=== PATIENT | female | born 1985 | race Caucasian/White ===

== ENCOUNTER 2018-09-15 08:14 | Emergency (ER) | payer OTHER, SELFPAY ==
[2018-09-15 09:01] LABS: Bilirubin Negative (Negative); Blood, Urine Moderate (Negative); Clarity CLOUDY (Clear); Glucose, Urine (Dipstick) Negative (Negative); Leukocyte Moderate (Negative); Nitrite Negative (Negative); Protein, Urine (Dipstick) Negative (Neg-Trace); Specific Gravity, Urine 1.011 (1.002-1.036); Urobilinogen 0.2 mg/dL (0.2-1.0)
[2018-09-15 09:02] LABS: Bacteria/HPF 2+ HPF (None Seen); Hyaline Casts/LPF 0-3 HYALINE CAST LPF (0-3 Hyaline); Pathc Cast-AUWi Flag 0.29 (0-2.49); Squamous Epithelial 0-3 HPF (0-3); WBC/HPF 21-50 HPF (0-3)
[2018-09-15 09:03] LABS: Pregnancy Test - Urine (BHCG) Negative (Negative); Specific Gravity 1.011 (1.002-1.036)
[2018-09-15 09:04] LABS: Pregu Control Background? CLEAR/WHITE (CLR/WHITE); Pregu Control Bar Appear? YES (CONTROL BAR)
[2018-09-15] MEDS ORDERED: Ketorolac Tromethamine 30 MG/ML VIAL ONE (09:47)
== END 2018-09-15 10:15 | disposition home or self-care (01) ==
LOC: ERS 08:14
DX: N39.0 Urinary tract infection, site not specified (principal); F32.9 Major depressive disorder, single episode, unspecified; E86.0 Dehydration; F41.9 Anxiety disorder, unspecified; Z87.891 Personal history of nicotine dependence; Z79.899 Other long term (current) drug therapy
CPT/HCPCS: 81003; 81015; 81025; 87077; 87086; 87186; 96361; 96374; J1885

== ENCOUNTER 2018-10-11 14:10 | Emergency (ER) | payer SELFPAY ==
[2018-10-11] MEDS ORDERED: KETAMINE 100 MG/ML (5ML VIAL) ONE (14:13)
[2018-10-11] MEDS ORDERED: Adacel (T-DAP) 0.5 ML SYRINGE ONE (14:16)
[2018-10-11] MEDS ORDERED: Fentanyl 100 MCG/2 ML VIAL ONE ×2 (14:16→14:49)
[2018-10-11] MEDS ORDERED: CEFAZOLIN 1 GM VIAL ONE (14:16)
[2018-10-11] MEDS ORDERED: HYDROmorphone 0.5 MG/0.5 ML SYRINGE ONE (15:16)
== END 2018-10-11 14:12 | disposition short-term general hospital (02) ==
LOC: ERS 14:10
DX: T23.202A Burn of second degree of left hand, unspecified site, initial encounter (principal); F41.9 Anxiety disorder, unspecified; F32.9 Major depressive disorder, single episode, unspecified; Z87.891 Personal history of nicotine dependence; X02.8XXA Other exposure to controlled fire in building or structure, initial encounter; Y93.G3 Activity, cooking and baking
CPT/HCPCS: 90471; 90715; 96374; 96375; 96376; G0390; J0690; J1170; J3010

== ENCOUNTER 2018-10-31 19:03 | Emergency (ER) | payer MEDICAID, SELFPAY ==
[2018-10-31] MEDS ORDERED: Ondansetron ODT 4 MG TAB ONE (19:26)
[2018-10-31 20:24] LABS: #Eosinphils 0.1 thou/uL (0.0-0.7); #Lymphocytes 1.6 thou/uL (1.20-3.40); #Monocytes 0.5 thou/uL (0.11-0.59); #Neutrophils 3.5 thou/uL (1.40-6.50); %Basophils 0.9 % (0.0-1.0); %Eosinophils 1.1 % (0.0-10.0); %Lymphocytes 28.4 % (21.0-51.0); %Neutrophils 60.6 % (42.0-75.0); Hemoglobin 13.6 g/dL (12.0-16.0); Mean Corpuscular HGB CONC 32.1 g/dL (32.0-36.0); Mean Corpuscular Hemoglobin 29.2 pg (27.0-31.0); Mean Corpuscular Volume 91.1 fL (78.0-98.0); Mean Platelet Volume 7.6 fL (7.4-10.4); Platelet Count 266 thou/uL (130-400); RBC Distribution Width 12.8 % (11.5-14.5); Red Blood Cell (RBC) Count 4.64 mill/uL (4.20-5.40); White Blood Cell (WBC) Count 5.7 thou/uL (4.8-10.8)
[2018-10-31 20:49] LABS: ALT (SGPT) 35 U/L (8-55); AST (SGOT) 26 U/L (5-34); Alkaline Phosphatase 105 U/L (40-150); Anion Gap 14 mmol/L (10-20); BUN (Urea Nitrogen) 5 mg/dL (7.0-18.7); Bilirubin, Total 0.3 mg/dL (0.2-1.2); Calc. Creatinine Clearance 0 mL/min (70-130); Calcium 9.6 mg/dL (7.8-10.44); Carbon Dioxide 22 mmol/L (22-29); Chloride 108 mmol/L (98-107); Estimated GFR-MDRD 86; Glucose 100 mg/dL (70-105); Potassium 3.9 mmol/L (3.5-5.1); Sodium 140 mmol/L (136-145)
[2018-10-31] MEDS ORDERED: Promethazine HCl 25 MG/ML VIAL ONE (21:08)
[2018-10-31] MEDS ORDERED: Morphine 4 MG/ML VIAL ONE (21:08)
[2018-10-31 21:41] LABS: BHCG - Serum Negative (NEGATIVE); Pregs Control Background? CLEAR/WHITE (CLR/WHITE); Pregs Control Bar Appear? YES (CONTROL BAR)
[2018-10-31 21:42] LABS: Bilirubin Negative (Negative); Blood, Urine Negative (Negative); Clarity CLOUDY (Clear); Glucose, Urine (Dipstick) Negative (Negative); Leukocyte Trace (Negative); Nitrite Negative (Negative); Protein, Urine (Dipstick) Trace mg/dL (Neg-Trace); Specific Gravity, Urine 1.035 (1.002-1.036); Urobilinogen 0.2 mg/dL (0.2-1.0)
[2018-10-31 21:44] LABS: Bacteria/HPF 1+ HPF (None Seen); Pathc Cast-AUWi Flag 2.47 (0-2.49)
[2018-10-31] MEDS ORDERED: Acetaminophen 325 MG TAB ONE (21:46)
[2018-10-31 21:50] LABS: Hyaline Casts/LPF 0-3 HYALINE CAST LPF (0-3 Hyaline); RBC/HPF 0-3 HPF (0-3)
== END 2018-10-31 22:38 | disposition home or self-care (01) ==
LOC: ERS 19:03
DX: K52.9 Noninfective gastroenteritis and colitis, unspecified (principal); E86.0 Dehydration; F32.9 Major depressive disorder, single episode, unspecified; F41.9 Anxiety disorder, unspecified; F17.210 Nicotine dependence, cigarettes, uncomplicated; Z79.899 Other long term (current) drug therapy
CPT/HCPCS: 36415; 80053; 81003; 81015; 83690; 84703; 85025; 96361; 96365; 96375; J2270; J2550; Q0162

== ENCOUNTER 2018-11-03 03:59 | Emergency (ER) | payer MEDICAID ==
[2018-11-03] MEDS ORDERED: Ondansetron PF 4 MG/2 ML Vial ONE (04:25)
[2018-11-03 04:30] LABS: #Basophils 0.1 thou/uL (0.0-0.2); #Eosinphils 0.2 thou/uL (0.0-0.7); #Lymphocytes 2.7 thou/uL (1.20-3.40); #Monocytes 0.7 thou/uL (0.11-0.59); #Neutrophils 3.8 thou/uL (1.40-6.50); %Basophils 1.1 % (0.0-1.0); %Eosinophils 2.5 % (0.0-10.0); %Lymphocytes 36.2 % (21.0-51.0); %Monocytes 9.2 % (0.0-10.0); Hemoglobin 12.9 g/dL (12.0-16.0); Mean Corpuscular HGB CONC 32.5 g/dL (32.0-36.0); Mean Corpuscular Hemoglobin 29.4 pg (27.0-31.0); Mean Corpuscular Volume 90.6 fL (78.0-98.0); Mean Platelet Volume 7.7 fL (7.4-10.4); Platelet Count 258 thou/uL (130-400); Red Blood Cell (RBC) Count 4.38 mill/uL (4.20-5.40); White Blood Cell (WBC) Count 7.5 thou/uL (4.8-10.8)
[2018-11-03 04:41] LABS: BHCG - Serum Negative (NEGATIVE); Pregs Control Background? CLEAR/WHITE (CLR/WHITE); Pregs Control Bar Appear? YES (CONTROL BAR)
[2018-11-03 04:51] LABS: ALT (SGPT) 28 U/L (8-55); AST (SGOT) 21 U/L (5-34); Alkaline Phosphatase 93 U/L (40-150); Anion Gap 13 mmol/L (10-20); BUN (Urea Nitrogen) 13 mg/dL (7.0-18.7); Bilirubin, Total Less than 0.2 mg/dL (0.2-1.2); Calc. Creatinine Clearance 0 mL/min (70-130); Calcium 8.8 mg/dL (7.8-10.44); Carbon Dioxide 21 mmol/L (22-29); Chloride 110 mmol/L (98-107); Estimated GFR-MDRD 86; Globulin 2.9 g/dL (2.4-3.5); Glucose 100 mg/dL (70-105); Lipase 65 U/L (8-78); Potassium 3.7 mmol/L (3.5-5.1); Protein, Total 6.9 g/dL (6.0-8.3); Sodium 140 mmol/L (136-145)
[2018-11-03] MEDS ORDERED: cloNIDine 0.1 MG TAB ONE (04:59)
== END 2018-11-03 05:35 | disposition home or self-care (01) ==
LOC: ERS 03:59
DX: R11.2 Nausea with vomiting, unspecified (principal); R10.9 Unspecified abdominal pain; F41.9 Anxiety disorder, unspecified; F32.9 Major depressive disorder, single episode, unspecified; F17.210 Nicotine dependence, cigarettes, uncomplicated; Z71.6 Tobacco abuse counseling; Z79.899 Other long term (current) drug therapy
CPT/HCPCS: 80053; 83690; 84703; 85025; 96361; 96372; 96374; 99406; J0500; J2405

== ENCOUNTER 2022-02-04 07:24 | Emergency (ER) | payer MEDICAID, OTHER ==
[2022-02-04 08:04] LABS: #Basophils 0.1 thou/uL (0.0-0.2); #Eosinphils 0.2 thou/uL (0.0-0.7); #Lymphocytes 2.3 thou/uL (1.20-3.40); #Monocytes 0.7 thou/uL (0.11-0.59); #Neutrophils 2.8 thou/uL (1.40-6.50); %Eosinophils 3.7 % (0.0-10.0); %Monocytes 10.8 % (0.0-10.0); %Neutrophils 46.5 % (42.0-75.0); Hemoglobin 14.4 g/dL (12.0-16.0); Mean Corpuscular HGB CONC 32.7 g/dL (32.0-36.0); Mean Corpuscular Hemoglobin 30.1 pg (27.0-31.0); Mean Platelet Volume 7.9 fL (7.4-10.4); Platelet Count 209 thou/uL (130-400); RBC Distribution Width 11.6 % (11.5-14.5); Red Blood Cell (RBC) Count 4.79 mill/uL (4.20-5.40)
[2022-02-04 08:31] LABS: ALT (SGPT) 28 U/L (8-55); AST (SGOT) 17 U/L (5-34); Albumin 4.3 g/dL (3.5-5.0); Alkaline Phosphatase 65 U/L (40-110); Anion Gap 14 mmol/L (10-20); BUN (Urea Nitrogen) 12 mg/dL (7.0-18.7); Bilirubin, Total 0.3 mg/dL (0.2-1.2); Calc. Creatinine Clearance 0 mL/min (70-130); Calcium 9.5 mg/dL (7.8-10.44); Carbon Dioxide 21 mmol/L (22-29); Chloride 107 mmol/L (98-107); Globulin 2.9 g/dL (2.4-3.5); Glucose 112 mg/dL (70-105); Lipase 66 U/L (8-78); Potassium 3.8 mmol/L (3.5-5.1); Protein, Total 7.2 g/dL (6.0-8.3); Sodium 138 mmol/L (136-145)
[2022-02-04 09:10] LABS: Bacteria/HPF None Seen HPF (None Seen); Bilirubin Negative (Negative); Blood, Urine Negative (Negative); Calcium Oxalate Crystals 3+ HPF (None Seen); Clarity Clear (Clear); Glucose, Urine (Dipstick) Normal (Negative); Ketone, Urine Trace mg/dL (Negative); Leukocyte Negative Leu/uL (Negative); Nitrite Negative (Negative); Protein, Urine (Dipstick) 30 mg/dL (Neg-Trace); RBC/HPF 0-3 HPF (0-3); Specific Gravity, Urine 1.039 (1.002-1.036); Squamous Epithelial 0-3 HPF (0-3); WBC/HPF 0-3 HPF (0-3); pH, Urine 6.5 (5.0-9.0)
[2022-02-04 09:15] LABS: Pregnancy Test - Urine (BHCG) Negative (Negative); Pregu Control Background? CLEAR/WHITE (CLR/WHITE); Pregu Control Bar Appear? YES (CONTROL BAR); Specific Gravity 1.039 (1.002-1.036)
[2022-02-04] MEDS ORDERED: Ketorolac Tromethamine 30 MG/ML VIAL ONE (09:20)
[2022-02-04] MEDS ORDERED: Ondansetron PF 4 MG/2 ML Vial ONE (09:20)
[2022-02-04] MEDS ORDERED: Morphine 4 MG/ML VIAL ONE (11:31)
== END 2022-02-04 12:10 | disposition home or self-care (01) ==
LOC: ERS 07:24
DX: K80.50 Calculus of bile duct without cholangitis or cholecystitis without obstruction (principal); N20.0 Calculus of kidney; F17.210 Nicotine dependence, cigarettes, uncomplicated; Z79.899 Other long term (current) drug therapy
CPT/HCPCS: 36415; 74176; 76705; 80053; 81003; 81015; 81025; 83690; 85025; 94760; 96374; 96375; J1885; J2270; J2405

== ENCOUNTER 2024-04-30 12:18 | Emergency (ER) | payer OTHER, SELFPAY ==
[2024-04-30 12:57] LABS: Bacteria/HPF None Seen HPF (None Seen); Bilirubin Negative (Negative); Blood, Urine Negative (Negative); CAUTI Indications for Culture Dysuria,urgency,freq; Clarity Clear (Clear); Glucose, Urine (Dipstick) Normal (Negative); Ketone, Urine Negative (Negative); Leukocyte Negative Leu/uL (Negative); Nitrite Negative (Negative); Protein, Urine (Dipstick) Negative (Neg-Trace); RBC/HPF 0-3 HPF (0-3); Specific Gravity, Urine 1.027 (1.002-1.036); Urobilinogen Normal mg/dL (Less than 2); WBC/HPF 0-3 HPF (0-3); pH, Urine 6.5 (5.0-9.0)
[2024-04-30 13:04] LABS: Urine Culture Reflex No No
== END 2024-04-30 13:56 | disposition home or self-care (01) ==
LOC: ERS 12:18
DX: N76.0 Acute vaginitis (principal); F17.210 Nicotine dependence, cigarettes, uncomplicated; I10 Essential (primary) hypertension
CPT/HCPCS: 81001; 87086; 99283